=== PATIENT | female | born 1945 | race Caucasian/White ===

== ENCOUNTER → 2017-01-02 | Day surgery (SDC) | payer MEDICARE, OTHER ==
[~2017-01-02] MED LIST: ASPI81TA82 PO; CHOL1CAP6 PO; CYMB30CA PO; FURO1TAB93 PO; HYDR-3535 PO; KCL10C PO; LACTATED RINGER'S 1000 ML INJ 0 ML ONE; METO50TA PO; NITR0.4S SL; PLAV75TA PO; PROPOFOL 500 MG/50 ML BTL IV ONE; REST30CA PO; ROSU5 PO; TASI150C PO; XANA0.5T PO; [UNRECOGNIZED DRUG - CODE] PO
== END | disposition home or self-care (01) ==
LOC: ESDC 07:15
PROVIDERS: ATTEND Internal Medicine Gastroenterology
DX: Z12.11 Encounter for screening for malignant neoplasm of colon (principal); Z86.010 Personal history of colon polyps; K57.90 Diverticulosis of intestine, part unspecified, without perforation or abscess without bleeding; D12.5 Benign neoplasm of sigmoid colon; K64.8 Other hemorrhoids; K64.4 Residual hemorrhoidal skin tags; K21.9 Gastro-esophageal reflux disease without esophagitis; K29.70 Gastritis, unspecified, without bleeding
CPT/HCPCS: 88305; 88312; J7120